=== PATIENT | male | born 1940 | race Caucasian/White ===

== ENCOUNTER 2025-09-08 21:37 | Emergency (ER) | payer MEDICARE, OTHER ==
[~2025-09-08] VITALS: Ht 180.3 cm; Wt 72.7 kg
[2025-09-08 22:03] VITALS: BP 129/57; PULSE 78; TEMP 98; O2SAT 98
--- NOTE | 2025-09-08 22:07 | Physician Documentation ---
History of Present Illness ~ Chief Complaint: Mechanical Fall Stated Complaint: FALL Time Seen by MD: 21:47 HPI She presents to the emergency room for evaluation after fall. He lives in assisted living facility. Patient states he remembers the whole thing denies any chest pain or palpitations. He states he was going between words in his living facility looking for a bathroom available in when doing so he simply fell. Initially complained of hip pain but denies any pain at this time and is ambulatory. Denies any head strike. No loss of consciousness. Medication Reconciliation Allergies: Coded Allergies: Tetracyclines (Verified Allergy, Unknown, 09/08/25) Review of Systems ROS All review of systems negative except as per HPI Physical Exam Vital Signs: Temperature: 98.0, Heart Rate: 2, Respiratory Rate: 20, BP: 133/67, Pulse Oximetry: 99, Weight: 72.700 Oxygen Flow Rate: 0 Physical Exam General: Patient is awake, alert, oriented in no acute distress Head: Normocephalic and atraumatic. Eyes: Conjunctival normal. EOMI. PERRL. ENT: Mucous membranes moist. Neck: Supple, trachea is midline. Chest: Clear to auscultation bilaterally without rales, rhonchi, or wheezes. There is no accessory muscle use or retractions. Cardiac: RRR without murmurs, gallops, or rubs. Abd: Soft, nondistended, nontender, with normoactive bowel sounds. No guarding, rebound, or rigidity. Extremities: Normal strength. Normal range of motion. No deformities or edema. Neuro: Cranial nerves II-XII grossly intact. No focal neuro deficits. Progress Results/Orders Results/Orders Orders - DICK GALVIN MD Cult Urine + [place] [address] (09/09/25 00:01) Completed Orders - DICK GALVIN MD Haloperidol Lact. (Haldol) (09/08/25 23:35) Ua W/Microscopic, Cult If Ind (09/08/25 23:27) Medications Received in ER Medications (Trade) Dose Ordered Sig/Giovanna Route PRN Reason Start Time Stop Time Status Last Admin Dose Admin (Haldol) 10 mg ONCE ONCE IM 09/08/25 23:35 09/08/25 23:38 DC 09/08/25 23:41 10 MG Vital Signs 09/08/25 09/08/25 09/08/25 21:42 22:03 23:46 Temp 98.0 98.0 Pulse 2 78 Resp 20 16 14 B/P (MAP) 133/67 129/57 (81) Pulse Ox 99 98 O2 Flow Rate 0 0 Laboratory Tests Test 09/08/25 23:27 Urine Specimen Description Non-specified Urine Color Yellow Urine Clarity Clear Urine pH 6.5 Urine Specific [place] 1.010 Urine Protein 100 H Urine Glucose (UA) Negative Urine Ketones Negative Urine Occult Blood Large H Urine Nitrite Negative Urine Bilirubin Negative Urine Urobilinogen 0.2 Urine Leukocyte Esterase Large H Urine RBC 50-100 Urine WBC 20-30 H Urine WBC Clumps Moderate Urine Squamous Epithelial Cells None seen Urine Bacteria 4+ Urine Culture Indicated Indicated Volume Urine Centrifuged 10 ml Urine Comment Medical Decision Making Additional information obtaine: N/A Findings Patient presents to the emergency room for evaluation of fall. Patient passed the road test and he is complaining of no pain. He had not feel CT scan is necessary as that has no objective evidence of head trauma. Urine positive for urinary tract infection and we will treat him for this as this could be contributing to falling. He will be monitored closely Differential Dx:Considerations: Include: Closed head injury, Cardiac injury, Fracture(s), Intraabdominal injury, Pneumothorax, Cerebral contusion, Pulmonary contusion, Spine injury, Tracheal injury, Urological injury, Vascular injury, Abrasion(s), Contusion(s), Foreign body(s), Hematoma(s), Laceration(s), Encephalopathy, Other Departure Disposition: 01 HOME / SELF CARE / HOMELESS Impression: Primary Impression: Fall Additional Impression: Urinary tract infection Condition: Stable Discharge Instructions: Fall Prevention in the Home, Adult, [id number], Urinary Tract Infection, Adult Referrals: NO PRIMARY CARE PROVIDER (PCP) Prescriptions Cephalexin*Monohydrate* (Keflex*) 500 Mg Capsule 1 CAP PO Q12H for 10 Days, #20 CAP Prov: DICK GALVIN MD 09/09/25 Signature Scribe Signature: No scribe Attestation: The note accurately reflects work and decisions made by me.Dick Galvin MD 09/09/25 00:09 DICK GALVIN MD Sep 08, 2025 22:06
[2025-09-08] MEDS: haloperidol lactate 5mg/ml inj IM ONE (23:41)
[2025-09-08 23:43] LABS: LEUKOCYTE ESTERASE ,URINE LARGE (Neg); NITRITES, URINE NEGATIVE (Neg); OCCULT BLOOD,URINE LARGE (Neg)
[2025-09-08 23:46] VITALS: RESP 14
[2025-09-08 23:57] LABS: UA COLLECTION TYPE NON-SPECIFIED
[2025-09-09] LABS: SQUAMOUS EPITHELIAL CELL,UR NONE SEEN /LPF (FEW); WBC CLUMPS,URINE MODERATE /HPF (NEGATIVE)
[2025-09-09] MEDS ORDERED: CEPH-585 PO (00:09)
== END 2025-09-09 01:48 | disposition home or self-care (01) ==
LOC: ER 21:38
DX: N39.0 Urinary tract infection, site not specified (principal); Z88.1 Allergy status to other antibiotic agents; W18.30XA Fall on same level, unspecified, initial encounter; Y93.89 Activity, other specified; Y92.89 Other specified places as the place of occurrence of the external cause; Y99.8 Other external cause status
CPT/HCPCS: 81001; 87088; 96372; 99283; J1630